=== PATIENT | male | born 1955 | race Caucasian/White ===

== ENCOUNTER 2019-08-13 15:37 | Observation (INO) | payer OTHER ==
[2019-08-13] MEDS ORDERED: Sodium Chloride 0.9% 1000 ML 1,000 ML IV STA (15:59)
[2019-08-13 16:51] LABS: BASOPHIL % 0.4 % (0.0-0.4); Basophil (Absolute #) 0.05 (0-0.4); Eosinophil % 1.7 % (0.00-5.0); Hematocrit 49.3 % (42-50); Hemoglobin 16.2 gm/dl (12.5-18.0); Lymphocyte (Absolute #) 1.89 (1.0-4.6); Lymphocytes % 15.8 % (24.0-44.0); Mean Corpuscular Hemoglobin 29.2 pg (26-32); Mean Corpuscular Hgb Concent. 32.9 g/dl (32-36); Mean Platelet Volume 11.9 fl (7.5-11.0); Monocyte (Absolute #) 0.54 (0.0-1.3); Monocytes % 4.5 % (0.0-12.0); Neutrophil % 77.6 % (36.0-66.0); Platelet Count 213 K/mm3 (150-450); Red Blood Count 5.54 M/mm3 (4.1-5.6); Red Cell Distribution Width 14.2 % (11.5-14.0)
--- NOTE | 2019-08-13 16:58 | XRAY ---
Indication: Syncopal episode. Multiple contiguous axial images obtained through the head without contrast. Comparison: None Age-appropriate global atrophy. No acute intracranial hemorrhage, abnormal extra-axial fluid collection, or mass effect. Fourth ventricle is midline without hydrocephalus. Mohan-white matter differentiation preserved. Bony calvarium intact. Maxillary sinuses demonstrates small fluid leveling bilaterally. Remaining visualized paranasal sinuses and mastoid air cells are clear. Impression: Paranasal sinus disease. Remaining CT head without contrast exam is negative.
[2019-08-13] MEDS ORDERED: Sodium Chloride 0.9% 1000 ML 1,000 ML ONE (17:04)
--- NOTE | 2019-08-13 17:06 | XRAY ---
Indication: Syncopal episode. Comparison: None Portable chest demonstrates normal heart and lungs with a few incidental calcified granulomas. Bony thorax intact with right scapula orthopedic hardware fixating old fracture. Impression: Nonacute chest with chronic features.
[2019-08-13 17:11] LABS: INR 1.1 (0.8-3.0); PROTIME 12.4 SECONDS (8.83-12.87)
[2019-08-13 17:15] LABS: ALBUMIN 4.3 g/dL (3.5-5.0); ANION GAP 15.2 MEQ/L (5-15); BILIRUBIN,TOTAL 0.6 mg/dL (0.2-1.3); Calcium 9.5 mg/dL (8.4-10.2); Creatinine 1 1.74 mg/dL (0.66-1.25); Potassium 3.7 mmol/L (3.5-5.1); Total Protein 7.5 g/dL (6.3-8.2)
--- NOTE | 2019-08-13 18:05 | ERPHSYRPT ---
- History of Present Illness Time Seen by Provider: 08/13/19 16:00 Source: patient Exam Limitations: no limitations Patient Subjective Stated Complaint: Pt stated that he ate 2 bags of peanut M&M' s and then he passed out with no warning, pt had been to his doctor on Sunday and they changed some of his blood pressure medicines but he was unable to tell what ones they had changed, he did bring in his current medications Triage Nursing Assessment: Pt's brought him to the ER, hypertensive, irregular arhythmia, lungs clear, pt states that he has been stressed lately training someone at work, pulses normal, no edema, denies pain Physician History: Patient is a 64-year-old male who ate breakfast as normal this morning at noon had a bag of M&M's and suddenly without warning or any pre-syncopal signs passed out. He was out for a very brief period of time. He denies any chest pain shortness of breath etc. He is on blood pressure medicines and they were changed recently and I note that he is on 2 beta-blockers both metoprolol and Coreg. He is otherwise has hyperlipidemia but besides the hypertension and the hyperlipidemia seems to have been a very healthy person. Witnessed: bystander Prior Episodes: single episode today, no prior history Timing/Duration: today Precipitating Factors: unknown Loss of Consciousness: brief (seconds) Charcter of event(s): became unresponsive Allergies/Adverse Reactions: No Known Drug Allergies Allergy (Verified 08/13/19 15:48) Home Medications: Aspirin EC 81 mg [Ecotrin 81 mg] 81 mg PO DAILY 08/13/19 [History] Carvedilol 6.25 mg [Coreg 6.25 MG] 6.25 mg PO BID 08/13/19 [History] Hydrochlorothiazide 25 mg [hydroDIURIL 25 MG] 25 mg PO DAILY 08/13/19 [ History] Losartan Potassium 50 mg [Cozaar 50 MG] 50 mg PO DAILY 08/13/19 [History] Metoprolol Succinate 25 mg Xl* [Toprol-Xl 25MG Tablets] 25 mg PO DAILY [History] Rosuvastatin Calcium [Crestor] 10 mg PO DAILY 08/13/19 [History] Hx Tetanus, Diphtheria Vaccination/Date Given: No Hx Influenza Vaccination/Date Given: No Hx Pneumococcal Vaccination/Date Given: No Immunizations Up to Date: No Travel Risk - International Travel Have you traveled outside of the country in past 3 weeks: No Have you or anyone close to you been diagnosed with or: No Do your reside in a community with a known COVID-19 case?: Yes If Yes where:: [place] - Coronavirus Screening Has patient experienced Coronavirus symptoms: No - Past Medical History Pertinent Past Medical History: Yes Cardiac History: High Cholesterol, Hypertension - Past Surgical History Past Surgical History: Yes Musculoskeletal: Other Other Surgical History: rotator cuff - Social History Smoking Status: Current every day smoker Exposure to second hand smoke: Yes Drug Use: none Patient Lives Alone: No - Review of Systems Constitutional: No Fever, No Chills Eyes: No Symptoms Ears, Nose, & Throat: No Symptoms Respiratory: No Cough, No Dyspnea Cardiac: No Chest Pain, No Edema, No Syncope Abdominal/Gastrointestinal: No Abdominal Pain, No Nausea, No Vomiting, No Diarrhea Genitourinary Symptoms: No Dysuria Musculoskeletal: No Back Pain, No Neck Pain Skin: No Rash Neurological: No Dizziness, No Focal Weakness, No Sensory Changes Psychological: No Symptoms Endocrine: No Symptoms All Other Systems: Reviewed and Negative Physical Exam - Nursing Vital Signs Nursing Vital Signs: Initial Vital Signs Temperature 96.6 F 08/13/19 15:48 Pulse Rate 70 08/13/19 15:48 Respiratory Rate 23 08/13/19 15:48 Blood Pressure 163/92 08/13/19 15:48 O2 Sat by Pulse Oximetry 99 08/13/19 15:48 Pain Scale Pain Intensity 0 - [place] Coma Scale Best Eye Response ([place]): (4) open spontaneously Best Verbal Response ([place]): (5) oriented Best Motor Response ([place]): (6) obeys commands [place] Total: 15 - Physical Exam General Appearance: no apparent distress, alert Eye Exam: bilateral eye: normal inspection, PERRL, EOMI Ears, Nose, Throat Exam: normal ENT inspection, pharynx normal, moist mucous membranes Neck Exam: normal inspection, non-tender, supple, full range of motion Respiratory: normal breath sounds, lungs clear, No chest tenderness, No respiratory distress Cardiovascular: irregular, capillary refill <2 sec, No murmur, No pulse deficit Gastrointestinal: soft, No tenderness, No distention, No mass Back Exam: normal inspection, normal range of motion, No CVA tenderness, No vertebral tenderness Extremity Exam: normal inspection, normal range of motion, pelvis stable, No tenderness Mental Status: alert, oriented x 3, cooperative project designer Exam: normal speech, PERRL, No facial droop Coordination/Gait: normal finger to nose Motor/Sensory: no motor deficit, no sensory deficit, no pronator drift Skin Exam: normal color, warm, dry, No rash SpO2: 99 - Course Nursing assessment & vital signs reviewed: Yes EKG Interpreted by Me: RATE, Other (Ventricular trigeminy and a borderline prolonged QT interval) - Radiology Exams Chest X-ray Interpretation: Other (No acute findings on chest x-ray) - CT Exams Head CT Interpretation: Negative Ordered Tests: Active Orders 24 hr Category Date Time Status EKG-ER Only STAT Care 08/13/19 15:59 Active IV Insertion STAT Care 08/13/19 15:59 Active Orthostatic Vital Signs STAT Care 08/13/19 15:59 Active CHEST 1 VIEW (PORTABLE) Stat Exams 08/13/19 15:59 Completed HEAD WITHOUT CONTRAST [CT] Stat Exams 08/13/19 15:59 Completed CBC W DIFF Stat Lab 08/13/19 16:35 Completed CMP Stat Lab 08/13/19 16:35 Completed D-DIMER QUANTITATIVE Stat Lab 08/13/19 16:35 Completed PROTIME WITH INR Stat Lab 08/13/19 16:35 Completed TROPONIN Q3H Lab 08/13/19 17:30 Completed TROPONIN Q3H Lab 08/13/19 20:30 Ordered TROPONIN Q3H Lab 08/13/19 23:30 Ordered UA W/RFX UR CULTURE Stat Lab 08/13/19 15:59 Uncollected Urine Triage Profile Stat Lab 08/13/19 15:59 Uncollected Medication Summary Generic Name Dose Route Start Last Admin Trade Name Freq PRN Reason Stop Dose Admin Enoxaparin Sodium 80 mg 08/13/19 18:15 Enoxaparin Sodium 1 mg/kg (80 mg) 09/12/19 18:14 SQ Q12H LUI Discontinued Medications Generic Name Dose Route Start Last Admin Trade Name Freq PRN Reason Stop Dose Admin Sodium Chloride 1,000 mls @ 999 mls/hr 08/13/19 15:59 08/13/19 17:06 Sodium Chloride 0.9% 1000 Ml IV 08/13/19 16:59 999 mls/hr .Q1H1M STA Administration Sodium Chloride Confirm 08/13/19 17:04 Sodium Chloride 0.9% 1000 Ml Administered 08/13/19 17:05 Dose 1,000 mls @ ud .ROUTE .STK-MED ONE Lab/Rad Data: Laboratory Result Diagrams 08/13/19 16:35 08/13/19 16:35 Laboratory Results 08/13/19 08/13/19 08/13/19 Range/Units 17:30 16:35 16:35 WBC (4.0-10.5) K/mm3 RBC (4.1-5.6) M/mm3 Hgb (12.5-18.0) gm/dl Hct (42-50) % MCV (78-100) fl MCH (26-32) pg MCHC (32-36) g/dl RDW (11.5-14.0) % Plt Count (150-450) K/mm3 MPV (7.5-11.0) fl Gran % (36.0-66.0) % Eos # (Auto) (0-0.5) Absolute Lymphs (auto) (1.0-4.6) Absolute Monos (auto) (0.0-1.3) Lymphocytes % (24.0-44.0) % Monocytes % (0.0-12.0) % Eosinophils % (0.00-5.0) % Basophils % (0.0-0.4) % Absolute Granulocytes (1.4-6.9) Basophils # (0-0.4) PT 12.4 (8.83-12.87) SECONDS INR 1.10 (0.8-3.0) D-Dimer 998 H* (215-500) ng/mL Sodium 139 (137-145) mmol/L Potassium 3.7 (3.5-5.1) mmol/L Chloride 100 (98-107) mmol/L Carbon Dioxide 28 (22-30) mmol/L Anion Gap 15.2 H (5-15) MEQ/L BUN 36 H (9-20) mg/dL Creatinine 1.74 H (0.66-1.25) mg/dL Estimated GFR 42.2 ML/MIN Glucose 184 H (74-106) mg/dL Calcium 9.5 (8.4-10.2) mg/dL Total Bilirubin 0.60 (0.2-1.3) mg/dL AST 22 (17-59) U/L ALT 17 (0-50) U/L Alkaline Phosphatase 104 (38-126) U/L Troponin I < 0.012 (0.000-0.034) ng/mL Serum Total Protein 7.5 (6.3-8.2) g/dL Albumin 4.3 (3.5-5.0) g/dL 08/13/19 Range/Units 16:35 WBC 12.0 H (4.0-10.5) K/mm3 RBC 5.54 (4.1-5.6) M/mm3 Hgb 16.2 (12.5-18.0) gm/dl Hct 49.3 (42-50) % MCV 89.0 (78-100) fl MCH 29.2 (26-32) pg MCHC 32.9 (32-36) g/dl RDW 14.2 H (11.5-14.0) % Plt Count 213 (150-450) K/mm3 MPV 11.9 H (7.5-11.0) fl Gran % 77.6 H (36.0-66.0) % Eos # (Auto) 0.20 (0-0.5) Absolute Lymphs (auto) 1.89 (1.0-4.6) Absolute Monos (auto) 0.54 (0.0-1.3) Lymphocytes % 15.8 L (24.0-44.0) % Monocytes % 4.5 (0.0-12.0) % Eosinophils % 1.7 (0.00-5.0) % Basophils % 0.4 (0.0-0.4) % Absolute Granulocytes 9.30 H (1.4-6.9) Basophils # 0.05 (0-0.4) PT (8.83-12.87) SECONDS INR (0.8-3.0) D-Dimer (215-500) ng/mL Sodium (137-145) mmol/L Potassium (3.5-5.1) mmol/L Chloride (98-107) mmol/L Carbon Dioxide (22-30) mmol/L Anion Gap (5-15) MEQ/L BUN (9-20) mg/dL Creatinine (0.66-1.25) mg/dL Estimated GFR ML/MIN Glucose (74-106) mg/dL Calcium (8.4-10.2) mg/dL Total Bilirubin (0.2-1.3) mg/dL AST (17-59) U/L ALT (0-50) U/L Alkaline Phosphatase (38-126) U/L Troponin I (0.000-0.034) ng/mL Serum Total Protein (6.3-8.2) g/dL Albumin (3.5-5.0) g/dL - Progress Progress: improved - Departure Departure Disposition: Observation Clinical Impression: Syncope Condition: Stable Critical Care Time: No Referrals: DOCTOR,NO FAMILY [Primary Care Provider] -
[2019-08-13] MEDS: ENOXAPARIN SODIUM SQ SCH (18:17)
[2019-08-13 18:38] LABS: Appearance CLEAR (CLEAR); Bilirubin NEGATIVE (NEGATIVE); Blood NEGATIVE Ery/ul (0-5); Glucose NEGATIVE (NEGATIVE); Ketones NEGATIVE (NEGATIVE); Leukocyte Esterase NEGATIVE (NEGATIVE); Mucus SLIGHT /HPF (NEGATIVE); Nitrite NEGATIVE (NEGATIVE); Protein,Urine Dip 30 (Negative); Urobilinogen NEGATIVE mg/dL (0-1)
[2019-08-13 19:53] LABS: Amphetamine,Urine NEGATIVE (NEGATIVE); Barbiturate,Urine NEGATIVE (NEGATIVE); Benzodiazepine,Urine NEGATIVE (NEGATIVE); Cocaine,Urine NEGATIVE (NEGATIVE); Methadone,Urine NEGATIVE (NEGATIVE); Opiate,Urine NEGATIVE (NEGATIVE); PCP,Urine NEGATIVE (NEGATIVE); THC,Urine NEGATIVE (NEGATIVE)
[2019-08-13] MEDS: Coreg 6.25 MG PO SCH (21:33)
[2019-08-14] MEDS: ENOXAPARIN SODIUM SQ SCH (05:58)
--- NOTE | 2019-08-14 09:28 | XRAY ---
Indication: Short of breath, chest discomfort, syncopal episode, and elevated d-dimer. Comparison: None Patient received 5.6 mCi technetium 99 MAA for the perfusion portion of the exam. Patient inhaled 35.1 mCi aerosolized technetium 99 DTPA for the ventilation portion of the exam. Multiple planar images obtained. Perfusion images demonstrates homogeneous radiopharmaceutical activity bilaterally without focal segmental or subsegmental perfusion defects. Ventilation images also demonstrates homogeneous radiopharmaceutical activity bilaterally. Small amount of GI activity from accidental ingestion. Impression: Nuclear medicine ventilation/perfusion scan is normal.
[2019-08-14] MEDS ORDERED: NIACIN 500 MG PO SCH (10:00)
[2019-08-14] MEDS ORDERED: MEDICATION INTERVENTION PO SCH (10:00)
[2019-08-14] MEDS ORDERED: ZOCOR 20MG PO SCH (10:00)
[2019-08-14] MEDS ORDERED: hydroDIURIL 25 MG PO SCH (10:00)
[2019-08-14] MEDS ORDERED: NON-FORMULARY ITEM (Rosuvastatin Calcium [Crestor] 10 MG) PO SCH (10:00)
[2019-08-14] MEDS ORDERED: Cozaar 50 MG PO SCH (10:00)
[2019-08-14] MEDS: Coreg 6.25 MG PO SCH (10:03)
--- NOTE | 2019-08-14 10:03 | HP ---
HISTORY OF PRESENT ILLNESS: This is a 64 year-old man without a local physician. He presented to the emergency room after syncopal episode. He reports he had cereal around 0600 hours and then at noon ate some M&M's out of a machine at work. He works for [employer]. He states he was sitting down when this happened and a elevator mechanic apprentice witnessed it. He reports he was talking to the elevator mechanic apprentice and then the next thing he knows the elevator mechanic apprentice was yelling at him. The elevator mechanic apprentice thought that he was out for about two minutes. The patient said no one described any seizure-like activity. The patient had no warning that this was going to happen. He denied any dizziness, no chest pain, no palpitations and no lightheadedness. 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 The patient reports that he is on blood pressure medicine and follows up with an [facility] through his employer. The patient reports feeling well this morning. He thinks everything is due to stress. MEDICATIONS: Please see the home medication reconciliation list which I reviewed. ALLERGIES: NKDA. PAST MEDICAL HISTORY: Chronic kidney disease stage III, hypertension. PAST SURGICAL HISTORY: Right shoulder repair 1995. SOCIAL HISTORY: He smokes one half to three-fourths pack per day. FAMILY HISTORY: His mother is and was on dialysis with end-stage renal disease. His father is with unknown cause. PHYSICAL EXAMINATION: VITAL SIGNS: Temperature current 98.1F, temperature max 98.1F, heart rate 66, respiratory rate 18, blood pressure 138/85. Oxygen saturation 95% on room air. GENERAL: The patient is a pleasant talkative man sitting up in no acute distress. CVS: He has a regular rate and rhythm. No murmurs, gallops or rubs are appreciated. CHEST: Clear to auscultation bilaterally with distant breath sounds. No crackles or wheezes are appreciated. NECK: Carotid arteries - There is no bruit auscultated. EXTREMITIES: No clubbing, cyanosis or edema. SKIN: Warm, dry and intact. LABORATORY DATA AND TESTS: In the emergency room his D-dimer was 998, nonfasting glucose 184. He has had three negative troponins. EKG with ventricular trigeminy. Urine tox negative. UA negative. White blood cell count 12,000. He had a head CT that was read as paranasal sinus disease otherwise negative. Please see the radiologist report for the full dictation. He had a chest x-ray that was read as nonacute chest with chronic features. He had a VQ scan this morning. There is no report on this yet. ASSESSMENT AND PLAN: 1) SYNCOPE: I have ordered an echocardiogram. I explained to the patient that we probably will not have the results of this back before he is discharged. I do not hear any carotid bruits. I would like for him to be off work until he can follow up with his regular doctor for further evaluation and treatment. I discussed with the patient that he may need some further cardiac work up as an outpatient. He ruled out for an acute myocardial infarction and he has had no chest pain. 2) ELEVATED D-DIMER: He had a VQ scan this morning. I plan to hold his aspirin today as he had the Lovenox prophylactically. If the VQ scan is negative will plan to discharge to home. 3) HYPERTENSION: He is on both metoprolol and carvedilol. I discussed with the patient that I am going to continue the carvedilol and hold the metoprolol. He will need to follow up with his regular doctor. 4) CHRONIC KIDNEY DISEASE STAGE III: The patient states he is aware of this and may benefit from a nephrology consult as an outpatient. I will leave this determination to his primary doctor. 5) HYPERGLYCEMIA: I am checking A1C to see if that is elevated and again can be followed up as an outpatient.
[2019-08-14 16:48] VITALS: BP 148/85; PULSE 65; O2SAT 93
--- NOTE | 2019-08-18 09:03 | ECHO ---
Transthoracic echocardiographic examination and color Doppler was done on 08/14/2019. INDICATION: Syncope, history of hypertension and hyperlipidemia. IMPRESSION: 1) NO DEFINITE REGIONAL WALL MOTION ABNORMALITY. ESTIMATED GLOBAL LEFT VENTRICULAR EJECTION FRACTION AROUND 50 TO 60%. 2) TRACE TRICUSPID REGURGITATION. RIGHT VENTRICULAR SYSTOLIC PRESSURE OF 23 MM OF MERCURY. 3) SCLEROTIC AORTIC VALVE WITH A PEAK TRANSAORTIC GRADIENT OF 9 MM OF MERCURY. 4) LEFT VENTRICULAR HYPERTROPHY. The left ventricle is visualized and demonstrated adequate motion of all the segments. Estimated global left ventricular ejection fraction around 50 to 60%. There is mild left ventricular hypertrophy. The mitral valve is seen and this opens adequately. No significant mitral regurgitation is seen. Left atrium is normal. The aortic valve is mildly sclerotic but appears to open adequately. The peak transaortic gradient across the aortic valve is about 9 mm of Mercury. The visualized portion of the aorta appears to be normal. The right side chambers appear to be normal. There is trace tricuspid regurgitation. The right ventricular systolic pressure of 23 mm of Mercury.
== END 2019-08-14 13:15 | disposition home or self-care (01) ==
LOC: ED 15:37 → MED SURG 19:00
PROVIDERS: ADMIT Internal Medicine; ATTEND Internal Medicine
DX: R55 Syncope and collapse (principal); R79.1 Abnormal coagulation profile; R73.9 Hyperglycemia, unspecified; I12.9 Hypertensive chronic kidney disease with stage 1 through stage 4 chronic kidney disease, or unspecified chronic kidney disease; N18.3 Chronic kidney disease, stage 3 (moderate); Z79.899 Other long term (current) drug therapy
CPT/HCPCS: 36000; 36415; 70450; 71045; 78582; 80053; 80307; 81001; 83036; 84484; 85025; 85379; 85610; 93005; 93268; 93306; 96360; 96372; 99285; A9540; A9567; G0378; J1650; A9270-GY

== ENCOUNTER 2023-03-26 18:32 | Emergency (ER) | payer OTHER ==
[2023-03-26 18:45] VITALS: TEMP 97.8
[2023-03-26] MEDS ORDERED: Sodium Chloride 0.9% 1000 ML 1,000 ML IV STA (19:38)
--- NOTE | 2023-03-26 19:38 | ERPHSYRPT ---
- History of Present Illness Time Seen by Provider: 03/26/23 19:38 Source: patient Exam Limitations: no limitations Patient Subjective Stated Complaint: Pt was visiting his daughter on [facility] and was leaning against the wall when he woke up on the floor with everyone over him Triage Nursing Assessment: Pt brought to the ER by the It Software Developer, vitals wnl, denies pain, denies hitting head, denies dizziness, states that he felt fine and after the syncopal episode he still feels fine, pulses normal, skin n/w/d, no difficulty with breathing, doesn't appear to be in any distress Physician History: This is a 68-year-old white male patient has a history of hypertension and hyperlipidemia and had a syncopal episode while on the medicalsurgical floor visiting his daughter. Apparently, it was witnessed that he was leaning up against the wall and suddenly he slid down and was on the floor. The next thing he was aware of is that he was on the floor looking up and multiple people around him. Patient was brought to the emergency department by the rooming house inspector. Patient states he is feeling completely fine. He denies headache. He denies neck pain. He denies chest pain. He denies shortness of breath. He has no abdominal pain and he has no extremity pain. Patient stated that he did have this happen in the distant past and the work-up was negative. Patient does not have a healthcare manager. In fact, he states he is looking for a new primary care provider. His provided additional, independent history. Timing/Duration: today Severity: mild Character of Deficits: none Deficits: no difficulties Baseline/Normal Cognition: alert oriented x 3 Current Cognition: alert oriented x 3 Baseline Gait: walks w/o assistance Associated Symptoms: denies symptoms Allergies/Adverse Reactions: No Known Drug Allergies Allergy (Verified 03/26/23 18:45) Home Medications: Aspirin EC 81 mg [Ecotrin 81 mg] 81 mg PO DAILY 08/13/19 [History] Carvedilol [Coreg ] 6.25 mg PO BID 08/13/19 [History] Hydrochlorothiazide 25 mg [hydroDIURIL 25 MG] 25 mg PO DAILY 08/13/19 [History] Rosuvastatin Calcium [Crestor] 10 mg PO DAILY 08/13/19 [History] Hx Tetanus, Diphtheria Vaccination/Date Given: No Hx Influenza Vaccination/Date Given: No Hx Pneumococcal Vaccination/Date Given: No Travel Risk - International Travel Have you traveled outside of the country in past 3 weeks: No - Coronavirus Screening Are you exhibiting any of the following symptoms?: No Close contact with a COVID-19 positive Pt in past 14-21 Days: No - Vaccine Status Have you recieved a Covid-19 vaccination: Yes Copy Center Specialist: Unknown - Vaccination Dates Dates if Unknown: unk - Review of Systems Constitutional: No Symptoms Eyes: No Symptoms Ears, Nose, & Throat: No Symptoms Respiratory: No Symptoms Cardiac: No Symptoms Abdominal/Gastrointestinal: No Symptoms Genitourinary Symptoms: No Symptoms Musculoskeletal: No Symptoms Skin: No Symptoms Neurological: No Symptoms Psychological: No Symptoms Endocrine: No Symptoms Hematologic/Lymphatic: No Symptoms Immunological/Allergic: No Symptoms All Other Systems: Reviewed and Negative - Past Medical History Pertinent Past Medical History: Yes Neurological History: No Pertinent History ENT History: No Pertinent History Cardiac History: High Cholesterol, Hypertension Respiratory History: No Pertinent History Endocrine Medical History: No Pertinent History Musculoskeletal History: No Pertinent History GI Medical History: No Pertinent History History: No Pertinent History Psycho-Social History: No Pertinent History Male Reproductive Disorders: No Pertinent History - Past Surgical History Past Surgical History: Yes Neuro Surgical History: No Pertinent History Cardiac: No Pertinent History Respiratory: No Pertinent History Gastrointestinal: No Pertinent History Genitourinary: No Pertinent History Musculoskeletal: Other Male Surgical History: No Pertinent History Other Surgical History: rotator cuff - Social History Smoking Status: Current every day smoker How long have you smoked: 40 Exposure to second hand smoke: Yes Drug Use: none Patient Lives Alone: No - Nursing Vital Signs Nursing Vital Signs: Initial Vital Signs Temperature 97.8 F 03/26/23 18:33 Pulse Rate 74 03/26/23 18:33 Respiratory Rate 17 03/26/23 18:33 Blood Pressure 132/74 03/26/23 18:33 O2 Sat by Pulse Oximetry 96 03/26/23 18:33 Pain Scale Pain Intensity 0 - [place] Coma Scale Best Eye Response ([place]): (4) open spontaneously Best Verbal Response ([place]): (5) oriented Best Motor Response ([place]): (6) obeys commands [place] Total: 15 - Physical Exam General Appearance: no apparent distress, alert Eye Exam: bilateral eye: normal inspection, PERRL, EOMI Ears, Nose, Throat Exam: normal ENT inspection, moist mucous membranes Neck Exam: normal inspection, non-tender, supple, full range of motion Respiratory: normal breath sounds, lungs clear, airway intact, No chest te nderness, No respiratory distress Cardiovascular: regular rate/rhythm, normal heart sounds, normal peripheral pulses Gastrointestinal: No tenderness Rectal Exam: not done Back Exam: normal inspection, normal range of motion, No CVA tenderness, No vertebral tenderness Extremity Exam: normal inspection, normal range of motion, pelvis stable Mental Status: alert, oriented x 3, cooperative glost tile sorter Exam: normal hearing, normal speech, PERRL Coordination/Gait: normal finger to nose, normal gait, normal cerebellar function Skin Exam: normal color, warm, dry SpO2 Interpretation: normal SpO2: 96 O2 Delivery: Room Air - Course Nursing assessment & vital signs reviewed: Yes EKG Interpreted by Me: RATE (72), Sinus Rhythm, NORMAL AXIS, NORMAL INTERVALS, NORMAL QRS, NORMAL ST-T, Other (No acute ischemic changes on today's twelve-lead EKG.) Ordered Tests: Active Orders 24 hr Category Date Time Status Weights And Measures Sealer STAT Care 03/26/23 19:39 Active Clean Catch Urine Specimen STAT Care 03/26/23 19:38 Active EKG-ER Only STAT Care 03/26/23 19:38 Active IV Insertion STAT Care 03/26/23 19:38 Active Pulse Oximetry (ED) STAT Care 03/26/23 19:38 Active HEAD WITHOUT CONTRAST [CT] Stat Exams 03/26/23 19:39 Taken CBC W DIFF Stat Lab 03/26/23 19:59 Completed CMP Stat Lab 03/26/23 19:59 Completed ETHYL ALCOHOL Stat Lab 03/26/23 19:59 Completed T4 (Thyroxine) Stat Lab 03/26/23 19:59 Completed TROPONIN Q4H Lab 03/26/23 19:59 Completed TROPONIN Q4H Lab 03/26/23 23:45 Ordered TSH [TSH, 3RD Generation] Stat Lab 03/26/23 19:59 Completed UA W/RFX UR CULTURE Stat Lab 03/26/23 21:50 Completed Urine Triage Profile Stat Lab 03/26/23 21:50 Received Medication Summary Discontinued Medications Generic Name Dose Route Start Last Admin Trade Name Freq PRN Reason Stop Dose Admin Sodium Chloride 1,000 mls @ 999 mls/hr 03/26/23 19:38 03/26/23 21:35 Sodium Chloride 0.9% 1000 Ml IV 03/26/23 20:38 Infused .Q1H1M STA Infusion Sodium Chloride Confirm 03/26/23 19:54 Sodium Chloride 0.9% 1000 Ml Administered 03/26/23 19:55 Dose 1,000 mls @ ud .ROUTE .STK-MED ONE Lorazepam 1 mg 03/26/23 20:57 03/26/23 21:04 Lorazepam 2 Mg/1 Ml 2 Mg Vial IV 03/26/23 20:58 Not Given STAT ONE Lorazepam Confirm 03/26/23 21:02 Lorazepam 2 Mg/1 Ml 2 Mg Vial Administered 03/26/23 21:03 Dose 2 mg .ROUTE .STK-MED ONE Lab/Rad Data: Laboratory Result Diagrams 03/26/23 19:59 03/26/23 19:59 Laboratory Results 03/26/23 03/26/23 03/26/23 Range/Units 21:50 19:59 19:59 WBC (4.0-10.5) x10^3/uL RBC (4.1-5.6) x10^6/uL Hgb (12.5-18.0) g/dL Hct (42-50) % MCV (78-100) fL MCH (26-32) pg MCHC (32-36) g/dL RDW (11.5-14.0) % Plt Count (150-450) x10^3/uL MPV (7.5-11.0) fL Gran % (36.0-66.0) % Immature Gran % (Auto) (0.00-0.4) % Nucleat RBC Rel Count (0.00-0.1) % Eos # (Auto) (0-0.5) x10^3/uL Immature Gran # (Auto) (0.00-0.03) x10^3u/L Absolute Lymphs (auto) (1.0-4.6) x10^3/uL Absolute Monos (auto) (0.0-1.3) x10^3/uL Absolute Nucleated RBC (0.00-0.01) x10^3u/L Lymphocytes % (24.0-44.0) % Monocytes % (0.0-12.0) % Eosinophils % (0.00-5.0) % Basophils % (0.0-0.4) % Absolute Granulocytes (1.4-6.9) x10^3/uL Basophils # (0-0.4) x10^3/uL Sodium (137-145) mmol/L Potassium (3.5-5.1) mmol/L Chloride (98-107) mmol/L Carbon Dioxide (22-30) mmol/L Anion Gap (5-15) MEQ/L BUN (9-20) mg/dL Creatinine (0.66-1.25) mg/dL Estimated GFR ML/MIN Glucose (74-106) mg/dL Calcium (8.4-10.2) mg/dL Total Bilirubin (0.2-1.3) mg/dL AST (17-59) U/L ALT (0-50) U/L Alkaline Phosphatase (38-126) U/L Troponin I < 0.012 (0.000-0.034) ng/mL Serum Total Protein (6.3-8.2) g/dL Albumin (3.5-5.0) g/dL Thyroxine (T4) 9.87 (5.53-10.96) ug/dL TSH 3rd Generation 2.210 (0.47-4.68) mIU/L Urine Color Yellow (Yellow) Urine Appearance Clear (Clear) Urine pH 5.5 (4.6-8.0) Ur Specific [place] 1.020 (1.005-1.030) Urine Protein 30 (Negative) Urine Glucose (UA) Negative (Negative) mg/dL Urine Ketones Trace A (Negative) Urine Blood Negative (Negative) Urine Nitrite Negative (Negative) Urine Bilirubin Negative (Negative) Urine Urobilinogen 1.0 A (0.2) mg/dL Ur Leukocyte Esterase Negative (Negative) U Hyaline Cast (Auto) NONE SEEN (0-2) /LPF Urine Microscopic RBC 0-2 (0-5) /HPF Urine Microscopic WBC 0-2 (0-5) /HPF Ur Epithelial Cells None Seen (None Seen) /HPF Urine Bacteria None Seen (None Seen) /HPF Urine Culture Reflexed NO (NO) Ethyl Alcohol (0-10) mg/dL 03/26/23 03/26/23 Range/Units 19:59 19:59 WBC 8.3 (4.0-10.5) x10^3/uL RBC 5.64 H (4.1-5.6) x10^6/uL Hgb 16.1 (12.5-18.0) g/dL Hct 50.9 H (42-50) % MCV 90.2 (78-100) fL MCH 28.5 (26-32) pg MCHC 31.6 L (32-36) g/dL RDW 13.7 (11.5-14.0) % Plt Count 180 (150-450) x10^3/uL MPV 11.1 H (7.5-11.0) fL Gran % 66.0 (36.0-66.0) % Immature Gran % (Auto) 0.4 (0.00-0.4) % Nucleat RBC Rel Count 0.0 (0.00-0.1) % Eos # (Auto) 0.25 (0-0.5) x10^3/uL Immature Gran # (Auto) 0.03 (0.00-0.03) x10^3u/L Absolute Lymphs (auto) 1.87 (1.0-4.6) x10^3/uL Absolute Monos (auto) 0.57 (0.0-1.3) x10^3/uL Absolute Nucleated RBC 0.00 (0.00-0.01) x10^3u/L Lymphocytes % 22.7 L (24.0-44.0) % Monocytes % 6.9 (0.0-12.0) % Eosinophils % 3.0 (0.00-5.0) % Basophils % 1.0 (0.0-0.4) % Absolute Granulocytes 5.45 (1.4-6.9) x10^3/uL Basophils # 0.08 (0-0.4) x10^3/uL Sodium 137 (137-145) mmol/L Potassium 4.0 (3.5-5.1) mmol/L Chloride 103 (98-107) mmol/L Carbon Dioxide 27 (22-30) mmol/L Anion Gap 11.1 (5-15) MEQ/L BUN 26 H (9-20) mg/dL Creatinine 1.41 H (0.66-1.25) mg/dL Estimated GFR 54.3 ML/MIN Glucose 94 (74-106) mg/dL Calcium 9.5 (8.4-10.2) mg/dL Total Bilirubin 0.60 (0.2-1.3) mg/dL AST 23 (17-59) U/L ALT 19 (0-50) U/L Alkaline Phosphatase 67 (38-126) U/L Troponin I (0.000-0.034) ng/mL Serum Total Protein 7.1 (6.3-8.2) g/dL Albumin 4.3 (3.5-5.0) g/dL Thyroxine (T4) (5.53-10.96) ug/dL TSH 3rd Generation (0.47-4.68) mIU/L Urine Color (Yellow) Urine Appearance (Clear) Urine pH (4.6-8.0) Ur Specific [place] (1.005-1.030) Urine Protein (Negative) Urine Glucose (UA) (Negative) mg/dL Urine Ketones (Negative) Urine Blood (Negative) Urine Nitrite (Negative) Urine Bilirubin (Negative) Urine Urobilinogen (0.2) mg/dL Ur Leukocyte Esterase (Negative) U Hyaline Cast (Auto) (0-2) /LPF Urine Microscopic RBC (0-5) /HPF Urine Microscopic WBC (0-5) /HPF Ur Epithelial Cells (None Seen) /HPF Urine Bacteria (None Seen) /HPF Urine Culture Reflexed (NO) Ethyl Alcohol < 10 (0-10) mg/dL - Progress Progress: improved Progress Note: 03/26/23 21:00 This patient's medical issue is 1 of moderate complexity. Level complexity in the work-up performed is based on review of the patient's past medical history, review the patient's medication list, review the patient's drug allergy list, history of present illness and physical findings on examination. This patient's work-up includes placement of intravenous line, twelve-lead EKG, troponin level, CBC, CMP, urinalysis, urine drug screen, CT scan of the head without contrast. 03/26/23 21:14 CT scan of the abdomen and pelvis was interpreted by the radiologist and I reviewed the impression. There is a nonacute CT scan of the head without contrast. There is mild ethmoid sinus disease. Counseled pt/family regarding: lab results, diagnosis, need for follow-up, rad results Medical Desision Making - Independent Historian Additional History obtained from: Spouse - Diagnostic Testing Diagnostic test were ordered, analyzed, and reviewed by me: Yes Radiological Interpretation: Reviewed by me, Teleradiologist Report - Risk of complications Low Risk: Low risk of morbidity from additional dx testing or treatment - Departure Departure Disposition: Home Clinical Impression: Episode of syncope, Mild dehydration Condition: Stable Critical Care Time: No Referrals: BEN NGUYEN [Primary Care Provider] - Follow up/PCP as directed Additional Instructions: Drink plenty fluids. Take your medication as prescribed. Call your primary care provider tomorrow, 03/27/2023, to make a follow-up appointment in the next 1 to 3 days for further evaluation and management including evaluation by healthcare manager if indicated.
[2023-03-26] MEDS ORDERED: Sodium Chloride 0.9% 1000 ML 1,000 ML ONE (19:54)
[2023-03-26 20:03] LABS: Absolute Neutrophil Ct (ANC) 5.45 x10^3/uL (1.4-6.9); Basophil (Absolute #) 0.08 x10^3/uL (0-0.4); Eosinophil (Absolute #) 0.25 x10^3/uL (0-0.5); Hematocrit 50.9 % (42-50); Hemoglobin 16.1 g/dL (12.5-18.0); IMMATURE GRAN # 0.03 x10^3u/L (0.00-0.03); IMMATURE GRAN % 0.4 % (0.00-0.4); Lymphocyte (Absolute #) 1.87 x10^3/uL (1.0-4.6); Lymphocytes % 22.7 % (24.0-44.0); Mean Cell Volume 90.2 fL (78-100); Mean Corpuscular Hemoglobin 28.5 pg (26-32); Mean Corpuscular Hgb Concent. 31.6 g/dL (32-36); Mean Platelet Volume 11.1 fL (7.5-11.0); Monocyte (Absolute #) 0.57 x10^3/uL (0.0-1.3); Monocytes % 6.9 % (0.0-12.0); Platelet Count 180 x10^3/uL (150-450); Red Blood Count 5.64 x10^6/uL (4.1-5.6); Red Cell Distribution Width 13.7 % (11.5-14.0); White Blood Count 8.3 x10^3/uL (4.0-10.5)
[2023-03-26 20:19] LABS: ALBUMIN 4.3 g/dL (3.5-5.0); ALKALINE PHOSPHATASE 67 U/L (38-126); ANION GAP 11.1 MEQ/L (5-15); BLOOD UREA NITROGEN 26 mg/dL (9-20); CHLORIDE 103 mmol/L (98-107); Calcium 9.5 mg/dL (8.4-10.2); Carbon Dioxide 27 mmol/L (22-30); Creatinine 1 1.41 mg/dL (0.66-1.25); EST GLOMERULAR FILTRATION RATE 54.3 ML/MIN; ETHYL ALCOHOL < 10 mg/dL (0-10); Glucose 94 mg/dL (74-106); SGOT/AST 23 U/L (17-59); SGPT/ALT 19 U/L (0-50); SODIUM 137 mmol/L (137-145); Total Protein 7.1 g/dL (6.3-8.2)
[2023-03-26 20:48] LABS: T4 (Thyroxine) 9.87 ug/dL (5.53-10.96); TSH, 3RD Generation 2.21 mIU/L (0.47-4.68)
[2023-03-26] MEDS ORDERED: Ativan 2 MG/1 ML VIAL IV ONE (20:57)
[2023-03-26] MEDS ORDERED: Ativan 2 MG/1 ML VIAL ONE (21:02)
[2023-03-26 21:59] LABS: Appearance Clear (Clear); Bacteria None Seen /HPF (None Seen); Bilirubin Negative (Negative); Blood Negative (Negative); Epithelial Cells None Seen /HPF (None Seen); Glucose, Urine Negative (Negative); Hyaline Casts NONE SEEN /LPF (0-2); Ketones Trace (Negative); Leukocyte Esterase Negative (Negative); Nitrite Negative (Negative); Ph 5.5 (4.6-8.0); Protein,Urine Dip 30 (Negative); RBC 0-2 /HPF (0-5); WBC 0-2 /HPF (0-5)
[2023-03-26 22:02] LABS: ADD URINE CULTURE? NO (NO)
[2023-03-26 22:06] VITALS: BP 159/87; PULSE 87; RESP 14
[2023-03-26 22:11] VITALS: O2SAT 96
[2023-03-26 22:18] LABS: Amphetamine,Urine NEGATIVE (NEGATIVE); Barbiturate,Urine NEGATIVE (NEGATIVE); Benzodiazepine,Urine NEGATIVE (NEGATIVE); Cocaine,Urine NEGATIVE (NEGATIVE); Methadone,Urine NEGATIVE (NEGATIVE); Opiate,Urine NEGATIVE (NEGATIVE); PCP,Urine NEGATIVE (NEGATIVE); THC,Urine NEGATIVE (NEGATIVE)
--- NOTE | 2023-03-27 08:50 | XRAY ---
Indication: Syncope. Multiple contiguous axial images obtained through the head without contrast. Comparison: August 13, 2019 Normal appearing brain parenchyma, ventricles, and bony calvarium for patient's age. Mild mucosal thickening both ethmoid sinuses. Mastoid air cells are clear. Impression: Again mild paranasal sinus disease. Remaining CT head without contrast exam continues to be normal.
== END 2023-03-26 22:29 | disposition home or self-care (01) ==
LOC: ED 18:32
DX: R55 Syncope and collapse (principal); E86.0 Dehydration; I10 Essential (primary) hypertension; E78.5 Hyperlipidemia, unspecified; Z79.899 Other long term (current) drug therapy; Z72.0 Tobacco use
CPT/HCPCS: 36000; 36415; 70450; 80053; 80307; 81001; 82077; 84436; 84443; 84484; 85025; 93005; 93041; 94760; 96360; 99284; J2060